=== PATIENT | female | born 1960 | race Two or more races ===

== ENCOUNTER → 2025-04-10 | Outpatient (CLI) | payer MEDICARE, MEDICAID, SELFPAY ==
--- NOTE | 2025-04-10 08:45 | XR_ITS ---
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 Imaging was performed on an integrated 16-slice PET/CT scanner, with scanning from the skull base to the mid thigh. Serum blood glucose at the time of the injection was measured 103 mg/dL. CT scanning was performed without oral or intravenous contrast material. FINDINGS: Head and Neck: There is no brandon hypermetabolism in the neck. The visualized portions of the brain are normal in appearance on CT. Chest: There is no brandon hypermetabolism in the chest. There are no pulmonary nodules. Abdomen and Pelvis: There is no brandon hypermetabolism in retroperitoneal or pelvic chains. The spleen is normal in size and FDG avidity. Non-hypermetabolic 8 mm left periaortic lymph node image 170, 8 mm non-hypermetabolic left periaortic lymph node image 174 Non-hypermetabolic stellate linear densities posterior to the right ascending colon for instance image 191 Rim-like hypermetabolic activity anterior right lateral margin of the rectum, axial image 241 measuring 13 mm in thickness Musculoskeletal: Marrow uptake is within normal range. IMPRESSION: Non-hypermetabolic subcentimeter left lateral para-aortic lymphadenopathy Rim-like hypermetabolic activity anterior right lateral margin of the rectum measuring up to 13 mm in thickness, recommend colonoscopy and direct inspection of the rectosigmoid region
== END | disposition home or self-care (01) ==
PROVIDERS: PCP Family Medicine; Referring Provider Internal Medicine Hematology & Oncology; Visit Provider Internal Medicine Hematology & Oncology
DX: R59.0 Localized enlarged lymph nodes (principal); C96.4 Sarcoma of dendritic cells (accessory cells)
CPT/HCPCS: 78815; A9552

== ENCOUNTER → 2025-04-26 | Outpatient (CLI) | payer MEDICARE, MEDICAID, SELFPAY ==
--- NOTE | 2025-04-26 10:30 | ECHO_ITS ---
Patient Info Name: Alison Sr Age: 64 years : 1960 Gender: Female Ht: 160 cm Wt: 91 kg BSA: 2.05 m2 BP: 157 / 100 mmHg HR: 75 bpm Exam Date: 04/26/2025 10:16 AM Admit Date: 04/26/2025 Site: [facility] Room Number: ECHO Patient Status: O Exam Type: CA echo doppler complete Notcher: Marivel Alegria Ordering Physician: Juanito Sheppard Referring Physician: Juanito Sheppard Study Info Indications Sarcoma of dendritic cells (accessory cells) - Primary Location: SDIM Left Ventricular Outflow Tract Name Value Normal LVOT 2D LVOT Diameter 1.9 cm LVOT Doppler LVOT Peak Velocity 110 cm/s LVOT Mean Gradient 2 mmHg LVOT VTI 21 cm LVOT VTI/AV VTI Ratio 0.8 LVOT Stroke Volume 60 ml Pulmonic Valve Name Value Normal PV Doppler PV Peak Velocity 82 cm/s Mitral Valve Name Value Normal MV Doppler MV Decel Billings 352 cm/s2 MV PHT 62 ms MV Area (PHT) 3.5 cm2 4.0-5.0 MV Diastolic Function MV E Peak Velocity 76 cm/s MV A Peak Velocity 103 cm/s MV E/A 0.7 MV Annular TDI MV Septal e' Velocity 4.8 cm/s MV E/e' (Septal) 15.8 MV Lateral e' Velocity 7.2 cm/s MV E/e' (Lateral) 10.5 MV e' Average 5.99 cm/s MV E/e' (Average) 13.2 Tricuspid Valve Name Value Normal TV Regurgitation Doppler TR Peak Velocity 246 cm/s Estimated PAP/RSVP RA Pressure 3 mmHg <=5 PA Systolic Pressure 27 mmHg <36 RV Systolic Pressure 27 mmHg <36 Aortic Valve Name Value Normal AV 2D/MM AV Cusp Sep (MM) 1.6 cm AV Doppler AV Peak Velocity 117 cm/s AV Mean Gradient 3 mmHg AV VTI 26 cm AV Area (Cont Eq VTI) 2.3 cm2 >=3.0 AV Area (Cont Eq Brice) 2.7 cm2 AV DI (Brice) 0.94 AV Regurgitation 2D LVOT Area 2.8 cm2 Ventricles Name Value Normal LV Dimensions 2D/MM IVS Diastolic Thickness (2D) 0.9 cm 0.6-0.9 LVID Diastole (2D) 3.8 cm 3.8-5.2 LVIW Diastolic Thickness (2D) 0.9 cm 0.6-0.9 LVID Systole (2D) 2.4 cm 2.2-3.5 LVOT Diameter 1.9 cm LV Mass (2D Cubed) 101.06 g 67.00-162.00 LV Mass Index (2D Cubed) 49 g/m2 43-95 Relative Wall Thickness (2D) 0.47 <=0.42 IVS/LVIW Diastolic Thickness (2D) 1.00 0.00-1.50 LV Fractional Shortening/Ejection Fraction 2D/MM LV Fractional Shortening (2D) 37 % 27-45 LV EF (2D Teichholz) 67 % Atria Name Value Normal LA Dimensions LA Volume (4C A-L) 27 ml LA Volume (BP A-L) 31 ml Left Ventricle Left ventricular chamber dimension is normal. Left ventricular systolic function is normal with visually estimated ejection fraction of 60-65%. There is concentric remodeling noted in the left ventricle. Left ventricular segmental wall motion is normal. There is grade I diastolic dysfunction in the left ventricle. Right Ventricle Right ventricular chamber dimension is normal. Right ventricular systolic function is normal. Left Atrium Left atrial chamber dimension is normal. Right Atrium Right atrial chamber dimension is normal. Aortic Valve The aortic valve is trileaflet. There is no aortic valve sclerosis. There is no aortic valve stenosis with a peak velocity of 117 cm/s, mean gradient of 3 mmHg, and aortic valve area of 2.3 cm2. There is no aortic valve regurgitation. Pulmonic Valve The pulmonic valve is normal. There is no pulmonic valve stenosis. There is no pulmonic regurgitation. Mitral Valve The mitral valve has normal leaflets. There is no mitral valve stenosis. There is trace mitral valve regurgitation. Tricuspid Valve The tricuspid valve leaflets are normal. There is no tricuspid valve stenosis. There is mild tricuspid valve regurgitation. No pulmonary hypertension, estimated pulmonary arterial systolic pressure is 27 mmHg and systemic blood pressure of 157 mmHg in systole. Pericardium/Pleural The pericardium appears normal. There is no pericardial effusion. No pleural effusion visualized. Inferior Vena Cava Normal inferior vena cava with >50% collapse upon inspiration consistent with normal right atrial pressure, 3 mmHg. Aorta The aortic measurements are indexed to age and body surface area. The aortic root at the sinus of Valsalva is not well visualized. The prox ascending aorta is not well visualized. Summary 1. Left ventricle size is normal and systolic function is normal. Estimated ejection fraction is 60-65%. There is grade I diastolic dysfunction. 2. Right ventricle chamber size is normal and systolic function is normal. Estimated RVSP is 27 mmHg. 3. There is trace mitral valve regurgitation and Mild MR. 4. Normal IVC with estimated RA pressure 3 mmHg. Report Signatures Finalized by Lars Lambert on 04/27/2025 12:59 AM
== END | disposition home or self-care (01) ==
PROVIDERS: PCP Family Medicine; Referring Provider Internal Medicine Hematology & Oncology; Visit Provider Internal Medicine Hematology & Oncology
DX: I50.30 Unspecified diastolic (congestive) heart failure (principal); I08.1 Rheumatic disorders of both mitral and tricuspid valves; C96.4 Sarcoma of dendritic cells (accessory cells)
CPT/HCPCS: 93306

== ENCOUNTER → 2025-05-02 | Outpatient (CLI) | payer MEDICARE, MEDICAID, SELFPAY ==
--- NOTE | 2025-05-02 10:00 | XR_ITS ---
Examination: MRI abdomen with intravenous contrast Date and time of exam: April, 1102 hours, comparison PET/CT scan April 10, 2025 INDICATIONS: Diagnosis sarcoma of dendritic cells, accessory cells, abdominal pelvic pain 10 years Technique: Multiple MRI axial and sagittal sections lumbar spine. Sagittal T2-weighted images, TR 3500, TE 118 T1 weighted transverse sections, TR 688 T8.5, T2-weighted sagittal sections T1 weighted sagittal sections TR 621, TE 30 T2 axial sections, TR 4, 190, TE 84. Findings: No enhancing liver lesions No intrahepatic biliary tract dilatation Gallbladder is not visualized Spleen is not enlarged. No pancreatic mass or peripancreatic edema Normal adrenal glands No hydronephrosis or enhancing renal mass lesion Aorta normal size No ascites 6 mm, 2 mm, 2 mm left lateral periaortic lymph nodes No bowel obstruction No abnormal osseous enhancement IMPRESSION: No abnormal enhancing liver or splenic lesions No pancreatic mass Normal adrenal glands Negative for ascites Small left lateral para-aortic lymph nodes
--- NOTE | 2025-05-02 10:30 | XR_ITS ---
Examination: MRI pelvis without contrast Date and time of exam: May 02, 2025, 1102 hours INDICATIONS: Diagnosis sarcoma of dendritic cells, accessory cells, abdominal pelvic pain 10 years, PET CT scan April 10, 2025 rim-like hypermetabolic activity anterior right lateral margin of the rectum Technique: Multiple MRI axial and sagittal sections lumbar spine. Sagittal T2-weighted images, TR 3500, TE 118 T1 weighted transverse sections, TR 688 T8.5, T2-weighted sagittal sections T1 weighted sagittal sections TR 621, TE 30 T2 axial sections, TR 4, 190, TE 84. Findings: Nonobstructive bowel gas pattern. Suspicious for 14 mm perirectal lymph node No free fluid in the pelvis Urinary bladder intact Scattered colonic diverticulosis There is no abnormal enhancement involving the rectosigmoid on this study Homogeneous marrow signal with no abnormal enhancement IMPRESSION: No abnormal enhancing rectal or rectosigmoid mass Suspicious for 14 mm perirectal lymph node Recommend high-resolution CT chest post intravenous contrast follow-up
== END | disposition home or self-care (01) ==
LOC: SMRI 09:50
PROVIDERS: Referring Provider Internal Medicine Hematology & Oncology; Visit Provider Internal Medicine Hematology & Oncology
DX: R10.20 Pelvic and perineal pain unspecified side (principal); C96.4 Sarcoma of dendritic cells (accessory cells)
CPT/HCPCS: 72196; 74182; A9577